=== PATIENT | male | born 1970 | race African-American/Black ===

== ENCOUNTER 2018-11-15 16:12 | Emergency (ER) | payer OTHER ==
[~2018-11-15] VITALS: Ht 167.6 cm; Wt 102.1 kg
[2018-11-15 16:13] VITALS: BP 135/84
[2018-11-15] MEDS ORDERED: MEDROLDOSEPACK PO (16:49)
== END 2018-11-15 17:13 | disposition home or self-care (01) ==
LOC: ER 16:12
DX: L25.9 Unspecified contact dermatitis, unspecified cause (principal)

== ENCOUNTER 2019-10-23 06:39 | Emergency (ER) | payer OTHER ==
[~2019-10-23] VITALS: Ht 167.6 cm; Wt 113.4 kg
[~2019-10-23 06:39] MED LIST: MEDROLDOSEPACK PO
[2019-10-23 07:26] VITALS: BP 146/96
== END 2019-10-23 07:27 | disposition home or self-care (01) ==
LOC: ER 06:39
DX: J02.9 Acute pharyngitis, unspecified (principal)

== ENCOUNTER 2020-02-20 21:04 | Emergency (ER) | payer OTHER ==
[~2020-02-20] VITALS: Ht 167.6 cm; Wt 108.9 kg
[2020-02-20 21:06] VITALS: BP 145/91
== END 2020-02-20 21:45 | disposition home or self-care (01) ==
LOC: ER 21:04
DX: H92.02 Otalgia, left ear (principal)